=== PATIENT | female | born 1950 | race Two or more races ===

== ENCOUNTER 2024-02-18 22:19 | Inpatient (IN) | payer OTHER ==
[~2024-02-18] VITALS: Ht 162.6 cm; Wt 61.2 kg
[2024-02-18 23:21] LABS: HEMATOCRIT 43.2 % (36.0-45.00); HEMOGLOBIN 14.1 g/dL (12.0-15.00); MEAN CELL VOLUME 87.4 fL (80.00-100.00); MEAN CORPUSCULAR HEMOGLOBIN 28.6 pg (27.00-32.0); MEAN CORPUSCULAR HGB CONC 32.7 g/dl (32.0-36.0); PLATELET COUNT 245 K/uL (150-450); RED BLOOD COUNT 4.94 M/uL (4.00-6.00); RED CELL DISTRIBUTION WIDTH 14.7 % (11.5-14.5)
[2024-02-18 23:36] LABS: INR 1.1; PARTIAL THROMBOPLASTIN TIME 26.9 SECONDS (22.0-34.0); PROTHROMBIN TIME 11.9 SECONDS (9.0-11.5)
[2024-02-18 23:42] LABS: ALBUMIN 2.9 gm/dL (3.4-5.0); BILIRUBIN TOTAL 0.82 mg/dL (0.3-1.2); CALCIUM 9.5 mg/dL (8.5-10.1); CREATININE SERUM 0.83 mg/dL (0.55-1.02); GFR 67.02; GLOBULINA 3.8 G/DL (2.4-3.5); POTASSIUM 4.22 mEq/L (3.5-5.1); TOTAL PROTEIN 6.7 gm/dL (6.4-8.2)
[2024-02-19 00:10] LABS: ABG PH 7.356 (7.35-7.45); ABG PO2 78.9 mmHg (80-100); ABG pCO2 44.2 mmHg (35-45); BASE EXCESS 0.1 mmol/l; BICARBONATE 22.8 mmol/l (23-25); SaO2 95.2 %
[2024-02-19 00:11] LABS: Tco2 21.7 mmol/l; allen test SATISFACTORY; o2 21 %; puncture site RADIAL LEFT
[2024-02-19] MEDS ORDERED: FUROsemide 40 MG/4 ML VIAL IV STA (05:59)
[2024-02-19] MEDS ORDERED: NITROGLYCERIN 250 ML IV SCH (06:00)
[2024-02-19] MEDS ORDERED: FUROsemide 40 MG/4 ML VIAL ONE (06:08)
[2024-02-19] MEDS ORDERED: NITROGLYCERIN IN 5 % DEXTROSE 50 MG/250 ML BOTTLE IV ONE (06:08)
[2024-02-19 06:55] LABS: PH,URINE 6.5 (5.0-8.0); URINE APPEARANCE Clear; URINE BILIRRUBIN Negative (NEGATIVE); URINE BLOOD Negative; URINE COLOR Yellow; URINE GLUCOSE Negative (NEGATIVE); URINE KETONE Negative (NEGATIVE); URINE LEUKOCYTE Negative; URINE NITRATE Negative; URINE PROTEIN Negative (NEGATIVE)
[2024-02-19 06:57] LABS: URINE BACTERIA 60.4 uL (0.0-1933); URINE EPITHELIAL CELLS 1.5 uL (0.0-38.8); URINE RBC 9.1 uL (0.0-20.8)
[2024-02-19] MEDS ORDERED: AMINO ACIDS/PROTEIN HYDROLYS 30 ML BLIST.PACK PO SCH (09:00)
[2024-02-19] MEDS ORDERED: IPRATROPIUM BROMIDE 0.5 MG/2.5 ML AMPUL.NEB IH SCH (09:00)
[2024-02-19] MEDS ORDERED: CANDESARTAN CILEXETIL 8 MG TAB PO SCH (09:00)
[2024-02-19] MEDS ORDERED: ENOXAPARIN SODIUM 30 MG/0.3 ML SYRINGE SUBCUTANEO SCH (09:00)
[2024-02-19] MEDS ORDERED: CARVEDILOL 3.125 MG TABLET PO SCH (09:00)
[2024-02-19] MEDS ORDERED: FUROsemide 20 MG/2 ML VIAL IV SCH (09:00)
[2024-02-19 10:49] VITALS: BP 119/48; O2SAT 95
[2024-02-19 11:19] LABS: LDH 264 U/L (84-246); PHOSPHOKINASE CREATININE 98 U/L (26-192)
[2024-02-19 17:54] VITALS: BP 135/72; O2SAT 98
[2024-02-19] MEDS ORDERED: FAMOtidine 40 MG TABLET PO SCH (21:00)
[2024-02-19 23:34] LABS: TP PLEURAL FLUID 2.4 g/dl
[2024-02-20 00:39] LABS: MONONUCLEAR 98 %; PLEURAL FLUID APPEARANCE HAZY; PLEURAL FLUID COLOR YELLOW; POLYMORPHONUCLEAR 2 %
[2024-02-20 02:00] VITALS: BP 102/54
[2024-02-20 06:26] LABS: HEMATOCRIT 39.7 % (36.0-45.00); MEAN CELL VOLUME 87.6 fL (80.00-100.00); MEAN CORPUSCULAR HEMOGLOBIN 28.6 pg (27.00-32.0); MEAN CORPUSCULAR HGB CONC 32.6 g/dl (32.0-36.0); PLATELET COUNT 236 K/uL (150-450); RED BLOOD COUNT 4.54 M/uL (4.00-6.00); RED CELL DISTRIBUTION WIDTH 14.7 % (11.5-14.5)
[2024-02-20 06:46] LABS: ERYTHROCYTE SEDIMENTATION RATE 30 mm/hr
[2024-02-20 07:08] LABS: LDH 230 U/L (84-246); PHOSPHOKINASE CREATININE 82 U/L (26-192)
[2024-02-20 07:14] LABS: ALBUMIN 2.1 gm/dL (3.4-5.0); BILIRUBIN TOTAL 0.7 mg/dL (0.3-1.2); BILIRUBIN,CONJUGATED 0.21 mg/dL (0.0-0.2); BILIRUBIN,UNCONJUGATED 0.49 mg/dL (0.0-0.6); C-REACTIVE PROTEIN 2.21 MG/DL (0.00-0.29); CALCIUM 7.9 mg/dL (8.5-10.1); CHOL HDL RATIO 3.5 (0-5.0); CREATININE SERUM 0.75 mg/dL (0.55-1.02); GFR 75.33; MAGNESIUM 2.1 mg/dL (1.8-2.4); POTASSIUM 3.92 mEq/L (3.5-5.1); T4 FREE 1.14 NG/ML (0.76-1.46); TOTAL PROTEIN 4.7 gm/dL (6.4-8.2); TSH 0.514 uIU/mL (0.358-3.74)
[2024-02-20 09:27] VITALS: BP 117/58; O2SAT 97
[2024-02-20 11:01] LABS: ABG PH 7.446 (7.35-7.45); ABG pCO2 44.6 mmHg (35-45)
[2024-02-20 11:02] LABS: ABG PO2 76.9 mmHg (80-100); BASE EXCESS 5.2 mmol/l; SaO2 94.2 %; Tco2 21.4 mmol/l; allen test SATISFACTORY; o2 28 %; puncture site RADIAL LEFT
[2024-02-20 22:07] VITALS: BP 91/48
[2024-02-21 00:47] VITALS: BP 100/50
[2024-02-21] MEDS ORDERED: CANDESARTAN CILEXETIL 8 MG TAB PO SCH (09:00)
[2024-02-21 10:49] VITALS: BP 90/32
[2024-02-21] MEDS ORDERED: CANDESARTAN CILE8 MG PO (11:49)
[2024-02-21] MEDS ORDERED: CARVEDILOL3.125 MG PO (11:49)
[2024-02-21] MEDS ORDERED: FAMOTIDINE40 MG PO (11:49)
[2024-02-21] MEDS ORDERED: PERCOCET 5-3251 EACH PO (11:50)
[2024-02-21 17:26] VITALS: BP 90/39
== END 2024-02-21 21:06 | disposition home or self-care (01) | DRG 167 ==
LOC: ER 22:19 → SEC-K 02-19 09:05 → MEDJ 02-19 09:59
PROVIDERS: General Practice; Radiology Vascular & Interventional Radiology; ADMIT Internal Medicine; ATTEND Internal Medicine
PROC: 0W994ZX Drainage of Right Pleural Cavity, Percutaneous Endoscopic Approach, Diagnostic (ICD-10-PCS; principal; 2024-02-19)
PROC: BW24ZZZ Computerized Tomography (CT Scan) of Chest and Abdomen (ICD-10-PCS; 2024-02-19)
PROC: B54DZZZ Ultrasonography of Bilateral Lower Extremity Veins (ICD-10-PCS; 2024-02-19)
PROC: 0W9B3ZZ Drainage of Left Pleural Cavity, Percutaneous Approach (ICD-10-PCS; 2024-02-20)
DX: J90 Pleural effusion, not elsewhere classified (principal); C79.51 Secondary malignant neoplasm of bone; C50.912 Malignant neoplasm of unspecified site of left female breast; I11.0 Hypertensive heart disease with heart failure; I50.9 Heart failure, unspecified; W18.30XA Fall on same level, unspecified, initial encounter; Y93.9 Activity, unspecified; Y92.9 Unspecified place or not applicable; I87.2 Venous insufficiency (chronic) (peripheral)